=== PATIENT | male | born 1945 | race Caucasian/White ===

== ENCOUNTER → 2023-07-16 | Outpatient (CLI) | payer OTHER | END | disposition home or self-care (01) | LOC: RESCLI 10:05 | PROVIDERS: ATTEND Internal Medicine | DX: I82.5Z3 Chronic embolism and thrombosis of unspecified deep veins of distal lower extremity, bilateral (principal); I89.0 Lymphedema, not elsewhere classified; I10 Essential (primary) hypertension; E78.2 Mixed hyperlipidemia; H91.93 Unspecified hearing loss, bilateral; Z88.0 Allergy status to penicillin; Z91.030 Bee allergy status; Z79.01 Long term (current) use of anticoagulants; Z98.890 Other specified postprocedural states; Z79.899 Other long term (current) drug therapy ==